=== PATIENT | male | born 1965 | race Caucasian/White ===

== ENCOUNTER 2024-09-18 07:00 | Day surgery (SDC) | payer BC ==
[~2024-09-18] VITALS: Ht 165.1 cm; Wt 94.9 kg
[~2024-09-18 07:00] MED LIST: ESOM20 PO
[2024-09-18] MEDS ORDERED: Lactated Ringer's 1,000 ML IV ONE ×2 (07:35→08:19)
[2024-09-18] MEDS ORDERED: LOSA25 (07:38)
[2024-09-18] MEDS ORDERED: FELODIPINE ER2.5 M1 (07:39)
[2024-09-18] MEDS ORDERED: propofoL 50 ML IV ONE (08:43)
[2024-09-18 09:34] VITALS: BP 140/76
== END 2024-09-18 09:40 | disposition home or self-care (01) ==
LOC: ORSCSDS 07:00
PROVIDERS: Surgery
PROC: 0DBK8ZX Excision of Ascending Colon, Via Natural or Artificial Opening Endoscopic, Diagnostic (ICD-10-PCS; principal; 2024-09-18 08:30)
DX: Z12.11 Encounter for screening for malignant neoplasm of colon (principal); K63.5 Polyp of colon; I10 Essential (primary) hypertension; K21.9 Gastro-esophageal reflux disease without esophagitis; G47.33 Obstructive sleep apnea (adult) (pediatric); E66.9 Obesity, unspecified; Z68.34 Body mass index [BMI] 34.0-34.9, adult; Z79.899 Other long term (current) drug therapy
CPT/HCPCS: J2704; J7120